=== PATIENT | female | born 1990 | race Caucasian/White ===

== ENCOUNTER 2017-07-03 19:00 | Emergency (ER) | payer OTHER ==
[~2017-07-03] VITALS: Ht 154.9 cm; Wt 70.3 kg
[2017-07-03 19:20] VITALS: BP 140/84
--- NOTE | 2017-07-03 19:20 | PHYS DOC ---
Adult General Chief Complaint Chief Complaint: ANKLE PROBLEM HPI HPI Patient is a 27 year old female presents to the emergency department with complaints of right foot pain for 2 weeks. Patient states 2 weeks ago she was moving some furniture when she misstepped and had a inversion with plantar flexion of the right foot. She's had discomfort since that time. She has been ambulatory for the past 2 weeks. She reports no swelling. She states now seeking further evaluation. Review of Systems Review of Systems Constitutional: Denies fever or chills [] Eyes: Denies change in visual acuity, redness, or eye pain [] HENT: Denies nasal congestion or sore throat [] Respiratory: Denies cough or shortness of breath [] Cardiovascular: No additional information not addressed in HPI [] GI: Denies abdominal pain, nausea, vomiting, bloody stools or diarrhea [] : Denies dysuria or hematuria [] Musculoskeletal: Right foot pain Integument: Denies rash or skin lesions [] Neurologic: Denies headache, focal weakness or sensory changes [] Endocrine: Denies polyuria or polydipsia [] Allergies Allergies Allergies Coded Allergies Type Severity Reaction Last Updated Verified No Known Drug Allergies 07/03/17 No Physical Exam Physical Exam Constitutional: Well developed, well nourished, no acute distress, non-toxic appearance. [] HENT: Normocephalic, atraumatic, bilateral external ears normal, oropharynx moist, no oral exudates, nose normal. [] Eyes: PERRLA, EOMI, conjunctiva normal, no discharge. [] Neck: Normal range of motion, no tenderness, supple, no stridor. [] Cardiovascular:Heart rate regular rhythm, no murmur [] Lungs & Thorax: Bilateral breath sounds clear to auscultation [] Abdomen: Bowel sounds normal, soft, no tenderness, no masses, no pulsatile masses. [] Skin: Warm, dry, no erythema, no rash. [] Back: No tenderness, no CVA tenderness. [] Extremities: Exam of the right lower extremity, right knee exam unremarkable, right ankle exam unremarkable. Right foot without swelling without ecchymosis. She's diffusely tender over the tarsal bones. Full range of motion all digits without difficulty. Neurovascular intact distally. Neurologic: Alert and oriented X 3, normal motor function, normal sensory function, no focal deficits noted. [] Psychologic: Affect normal, judgement normal, mood normal. [] EKG EKG [] Radiology/Procedures Radiology/Procedures Right foot x-ray no acute bony abnormalities[] Course & Med Decision Making Course & Med Decision Making Pertinent Labs and Imaging studies reviewed. (See chart for details) []Patient had the initial injury 2 weeks ago. She has been using a compression stocking and well fitted shoe to manage her symptoms. I've encouraged her to continue this process, ibuprofen [id number] as labeled and is indicated. follow up with primary Care provider in 3-5 days for further management. Dragon Disclaimer Dragon Disclaimer This electronic medical record was generated, in whole or in part, using a voice recognition dictation system. Departure Departure Impression: Primary Impression: Foot sprain Disposition: 01 HOME, SELF-CARE Condition: STABLE [facility] Patient Instructions: Foot Sprain Problem Qualifiers Primary Impression: Foot sprain Encounter type: initial encounter Laterality: right Qualified Codes: S93.601A - Unspecified sprain of right foot, initial encounter TENNILLE YANCEY APRN Jul 03, 2017 19:20
--- NOTE | 2017-07-04 10:49 | RAD ---
Right foot, 3 views, 07/03/2017: History: Foot pain. No acute fracture or dislocation is identified. There is mild subcutaneous edema. IMPRESSION: No acute bony abnormality is detected.
== END 2017-07-03 20:15 | disposition home or self-care (01) ==
LOC: ER 19:00
DX: S93.601A Unspecified sprain of right foot, initial encounter (principal); X58.XXXA Exposure to other specified factors, initial encounter; Y93.89 Activity, other specified; Y92.89 Other specified places as the place of occurrence of the external cause; Y99.8 Other external cause status
CPT/HCPCS: 73630; 99284

== ENCOUNTER → 2017-07-19 | Outpatient (CLI) | payer OTHER ==
[2017-07-03 19:20] VITALS: BP 140/84
--- NOTE | 2017-07-19 09:04 | RAD ---
INDICATION: Abdominal pain. COMPARISON: None. TECHNIQUE: Grayscale and color ultrasound images obtained through the abdomen. FINDINGS: Aorta/IVC: Poorly seen Pancreas: Visualized portions unremarkable. Liver: Mildly echogenic Gallbladder: No definite stones or wall thickening. Common Bile Duct: Not dilated. Right Kidney: No hydronephrosis. Left Kidney: No hydronephrosis. Spleen: Unremarkable. IMPRESSION: No bile duct dilation. Liver appears mildly echogenic. Nonspecific but can be seen with fatty infiltration.
== END | disposition home or self-care (01) ==
LOC: US 06:44
PROVIDERS: ATTEND Family Medicine
DX: R10.12 Left upper quadrant pain (principal); R11.0 Nausea
CPT/HCPCS: 76700

== ENCOUNTER → 2017-08-05 | Day surgery (SDC) | payer OTHER ==
[~2017-08-05] MED LIST: FAMO-63 PO; IV RINGERS,LACTATED 1000ML 1,000 ML IV SCH; LIDOCAINE 1% PF 2 ML VIAL. ID PRN; LIDOCAINE 2% PF Vial for OR 5 ML VIAL. ONE; MIDAZOLAM HCL/PF 2 MG/2 ML VIAL. IV PRN; PROPOFOL 40 ML IV ONE; SPIR100T2 PO; fentaNYL PF VIAL 100 MCG/2 ML VIAL IV PRN
[2017-08-05 13:05] LABS: NEG OBC UR NEG; POS OBC UR POS
[2017-08-05 14:28] VITALS: BP 107/72
== END | disposition home or self-care (01) ==
LOC: ENDOS 12:40
PROVIDERS: ATTEND Internal Medicine Gastroenterology
DX: K64.0 First degree hemorrhoids (principal); K31.89 Other diseases of stomach and duodenum; K21.9 Gastro-esophageal reflux disease without esophagitis; E11.9 Type 2 diabetes mellitus without complications; F41.9 Anxiety disorder, unspecified; F32.9 Major depressive disorder, single episode, unspecified; Z86.39 Personal history of other endocrine, nutritional and metabolic disease; Z98.890 Other specified postprocedural states
CPT/HCPCS: 43235; 45378; 81025; J2704; J2001

== ENCOUNTER 2017-08-26 12:16 | Day surgery (SDC) | payer OTHER ==
[~2017-08-26] VITALS: Ht 154.9 cm; Wt 77.1 kg
[~2017-08-26 12:16] MED LIST changes: +HYDROmorphone 2 MG/ML VIAL IV PRN; -LIDOCAINE 2% PF Vial for OR 5 ML VIAL. ONE; -MIDAZOLAM HCL/PF 2 MG/2 ML VIAL. IV PRN; +MORPHINE SULFATE 2 MG/ML DISP.SYRIN. IV PRN; +ONDANSETRON PF 4 MG/2 ML VIAL. IV PRN; +PROCHLORPERAZINE 10 MG/2 ML VIAL. IV PRN; -PROPOFOL 40 ML IV ONE
[2017-08-26] MEDS ORDERED: fentaNYL PF VIAL 100 MCG/2 ML VIAL ONE (12:45)
[2017-08-26] MEDS ORDERED: MIDAZOLAM HCL/PF 2 MG/2 ML VIAL. ONE (12:46)
[2017-08-26] MEDS ORDERED: DEXAMETHASONE SOD PHOS 20 MG/5 ML VIAL. ONE (12:46)
[2017-08-26] MEDS ORDERED: FAMOTIDINE 20 MG/2 ML VIAL ONE (12:46)
[2017-08-26] MEDS ORDERED: KETOROLAC 30 MG/ML INJ FOR OR. INJ ONE (12:46)
[2017-08-26] MEDS ORDERED: LIDOCAINE 2% PF Vial for OR 5 ML VIAL. ONE (12:46)
[2017-08-26] MEDS ORDERED: ROCURONIUM 50 MG/5 ML VIAL. ONE (12:46)
[2017-08-26] MEDS ORDERED: PROPOFOL 20 ML IV ONE (12:46)
[2017-08-26] MEDS ORDERED: ONDANSETRON PF 4 MG/2 ML VIAL. ONE (12:46)
[2017-08-26] MEDS ORDERED: DESFLURANE 31 TO 60 MINUTES IH ONE (12:46)
[2017-08-26] MEDS ORDERED: SEVOFLURANE 31 TO 60 MINUTES. IH ONE (12:53)
[2017-08-26] MEDS ORDERED: SURGICEL HEMOSTAT 4X8 EACH. ONE (13:31)
[2017-08-26 13:44] LABS: NEG OBC UR NEG; POS OBC UR POS
[2017-08-26] MEDS ORDERED: GLYCOPYRROLATE 1 MG/5 ML VIAL. ONE (14:09)
[2017-08-26] MEDS ORDERED: BUPIVAC MPF-EPI 0.5%-1:200000 10 ML VIAL. ONE (14:21)
[2017-08-26] MEDS ORDERED: ESMOLOL 100 MG/10 ML VIAL. IV ONE (14:27)
[2017-08-26] MEDS ORDERED: NEOSTIGMINE 10 MG/10 ML VIAL. ONE (14:44)
--- NOTE | 2017-08-26 14:56 | PDOC4 ---
Operative Note Operative Note Date: 08/26/2017 Preoperative diagnosis: Biliary dyskinesia Postoperative diagnosis: Same Procedure: Laparoscopic cholecystectomy Surgeon: Brian Specimen: Gallbladder Dictation: Patient is a 27-year-old female is had right upper quadrant abdominal pain postprandial nausea and a HIDA scan which showed ejection fraction of less than 30%. The procedure of lap scopic cholecystectomy was explained to the patient detail was benefits were also discussed including bleeding infection injury to intra-abdominal contents possibly necessitating further or open operations alternatives to this procedure were also discussed with the patient seemed understanding gave both verbal and written consent had procedure performed. Patient was taken to the operating room placed in supine position general anesthesia was initiated once patient was asleep and intubated her abdomen was prepped and draped in usual sterile fashion using ChloraPrep and area just below the umbilicus was injected with quarter percent Marcaine with epinephrine and an incision was made with a 11 blade scalpel varies needle was placed within the abdomen a pneumoperitoneum was achieved. At this point a 11 mm port was placed in a fibromata camera was placed within the abdomen which was inspected no other at maladies were noted. 5 OmegaPort was placed in the epigastrium under direct visualization a second 5 OmegaPort was placed in the right lateral abdomen as well as one in the right mid abdomen all under direct visualization. The dome of the gallbladder's grasped retracted cephalad the infundibulum of the gallbladder's grasped retracted laterally exposing the triangle adherent tissues of the triangle are taken down with blunt dissection. Cystic duct and cystic artery were visualizes both doubly clipped and transected the gallbladder was taken off the liver with hook left cautery placed in Endo Catch bag and removed from the umbilicus right upper quadrant was irrigated and suctioned dry hemostasis didn't be appropriate and the pneumoperitoneum was reduced all ports removed and the fascial defect of the umbilicus closed [id number] 0 Vicryl suture. All port sites were closed 4 septic Monocryl Mastisol Steri-Strips and Band-Aids were applied as dressings. Patient was waken expanded in the operating room taken recovery in stable condition all sponge instrument needle counts listed as correct estimated blood loss 10 mL. HUMA MEJIA MD Aug 26, 2017 14:56
--- NOTE | 2017-08-26 14:57 | DISCH ---
DISCHARGE INSTRUCTIONS Condition on Discharge Condition on Discharge: Stable Activity After Discharge Activity Instructions for Disc: Avoid exertion Other activity instructions: No lifting >20lbs for 2 weeks Diet after Discharge Diet after Discharge: Low Fat Wound Incision Care Other wound/incision instructi: may shower in 24 hours Contacting the after DC Call your doctor for: If your condition worsens Follow-Up Follow up with: Dr Mejia in 2 weeks HUMA MEJIA MD Aug 26, 2017 14:57
[2017-08-26] MEDS ORDERED: OXYC-323 PO (15:24)
[2017-08-26] MEDS ORDERED: oxyCODONE/APAP 5/325 1 TAB TABLET PO PRN ×2 (15:30)
[2017-08-26] MEDS: fentaNYL PF VIAL 100 MCG/2 ML VIAL IV PRN ×2 (15:33→15:40)
[2017-08-26] MEDS ORDERED: ALBUTEROL SULFATE 2.5 MG/3 ML NEBU. NEB PRN (15:45)
[2017-08-26 16:29] VITALS: BP 105/63
--- NOTE | 2017-08-27 20:12 | PATHOLOGY ---
PATHOLOGY REPORT * * * * * * * * FINAL DIAGNOSIS: Gallbladder, laparoscopic cholecystectomy: - Chronic cholecystitis. COMMENT: There are no calculi identified within the gallbladder lumen or specimen container. There is no evidence of malignancy. (JPM:pit; 08/27/2017) REPORT ELECTRONICALLY SIGNED BY: Zachery Cespedes M.D. DATE/TIME: 08/27/2017 14:41 * * * * * * * * GROSS PATHOLOGY: Received in formalin labeled "Jerilyn Monsivais, gallbladder," is a 4.6 x 2.3 x 0.7 cm, previously punctured gallbladder with light carr to bluish, slightly vascular serosal surfaces. Opening the gallbladder reveals dark carr, velvety mucosa and an average wall thickness of 0.2 cm. Calculi are not present and no masses are noted grossly. [employer] sections from the body and fundus are submitted along with the proximal margin in cassette A1. (TSD; 08/26/2017) INITIAL CPT CODE(S): A; 78472 Professional services performed by [facility] [place] [address] Technical services performed by [facility] at [address] [place] [address] [address] [address]. SPECIMEN(S) RECEIVED: A.Gallbladder CLINICAL HISTORY: Biliary dyskinesia PATIENT: JERILYN MONSIVAIS /AGE: 9 1990 (Age: 27) PATIENT #: [id number] ALT CASE #: SPECIMEN COLLECTION DATE: 08/26/2017 SPECIMEN RECEIVED DATE: 08/26/2017 [facility] - [address] [place] [address] - PHONE: [phone] * * * END OF REPORT * * *
== END 2017-08-26 16:46 | disposition home or self-care (01) ==
LOC: SURG 12:16
PROVIDERS: ATTEND Surgery
DX: K81.1 Chronic cholecystitis (principal); K82.8 Other specified diseases of gallbladder; J45.909 Unspecified asthma, uncomplicated; K21.9 Gastro-esophageal reflux disease without esophagitis; M19.90 Unspecified osteoarthritis, unspecified site; E11.9 Type 2 diabetes mellitus without complications; F41.9 Anxiety disorder, unspecified; F32.9 Major depressive disorder, single episode, unspecified; Z87.891 Personal history of nicotine dependence; Z90.710 Acquired absence of both cervix and uterus; Z86.69 Personal history of other diseases of the nervous system and sense organs
CPT/HCPCS: 47562; 81025; 88304; J0690; J0780; J1100; J1170; J1885; J2250; J2405; J2704; J2710; J3010; J3490; J7030; S0028; J2001

== ENCOUNTER → 2017-09-15 | Outpatient (CLI) | payer OTHER | END | disposition home or self-care (01) | LOC: SPEC 16:06 | DX: Z01.419 Encounter for gynecological examination (general) (routine) without abnormal findings (principal) | CPT/HCPCS: 88175 ==

== ENCOUNTER → 2017-10-01 | Outpatient (CLI) | payer OTHER | END | disposition home or self-care (01) | LOC: LAB 08:55 | DX: Z80.9 Family history of malignant neoplasm, unspecified (principal) | CPT/HCPCS: 36415 ==

== ENCOUNTER 2017-10-10 19:35 | Emergency (ER) | payer OTHER ==
[2017-10-10 20:41] LABS: URINE HCG POC HCG NEGATIVE (Negative)
[2017-10-10] MEDS: IV NORMAL SALINE 1000ML BAG 1,000 ML IV (21:02)
[2017-10-10] MEDS: DICYCLOMINE HCL 10 MG CAPSULE PO (21:06)
[2017-10-10] MEDS: ONDANSETRON PF 4 MG/2 ML VIAL. IV (21:07)
[2017-10-10 21:21] LABS: BILIRUBIN,URINE NEGATIVE (NEG); CLARITY,URINE CLEAR; COLOR,URINE YELLOW; GLUCOSE,URINE NEGATIVE (NEG); NITRITE,URINE NEGATIVE (NEG); PH,URINE 6.5; PROTEIN,URINE NEGATIVE (NEG-TRACE)
[2017-10-10 21:22] LABS: BACTERIA,URINE FEW /HPF (0-FEW); RBC,URINE OCC /HPF (0-2); SQUAMOUS EPITHELIAL CELL,UR MANY /LPF; WBC,URINE OCC /HPF (0-4)
[2017-10-10 21:30] LABS: ANION GAP 12 (6-14); BLOOD UREA NITROGEN 13 mg/dL (7-20); BUN/CREATININE RATIO 16 (6-20); CALCIUM 8.8 mg/dL (8.5-10.1); CARBON DIOXIDE 27 mmol/L (21-32); CHLORIDE 102 mmol/L (98-107); CREATININE 0.8 mg/dL (0.6-1.0); GFR 86.7; GLUCOSE 124 mg/dL (70-99); POTASSIUM 3.7 mmol/L (3.5-5.1); SODIUM 141 mmol/L (136-145)
[2017-10-10 21:34] LABS: INFLUENZA A PATIENT NEGATIVE (NEGATIVE); INFLUENZA B PATIENT NEGATIVE (NEGATIVE); OBC FLU VALID
[2017-10-10 21:36] LABS: ALBUMIN/GLOBULIN RATIO 1.1 (1.0-1.7); ALK PHOS 57 U/L (46-116); ALT (SGPT) 15 U/L (14-59); AST (SGOT) 12 U/L (15-37); C-REACTIVE PROTEIN 3.6 mg/L (0-3.3); LIPASE 116 U/L (73-393); TOTAL BILIRUBIN 0.4 mg/dL (0.2-1.0); TOTAL PROTEIN 7.7 g/dL (6.4-8.2)
[2017-10-10 21:43] LABS: ADD MAN DIFF? NO
[2017-10-10 21:44] LABS: BASO % 0 % (0-3); EOS # 0.1 x10^3/uL (0.0-0.7); EOS % 1 % (0-3); HEMATOCRIT 39.1 % (36.0-47.0); LYMPH # 3.7 x10^3/uL (1.0-4.8); LYMPH % 40 % (24-48); MEAN CORPUSCULAR HEMOGLOBIN 32 pg (25-35); MEAN CORPUSCULAR HGB CONC 33 g/dL (31-37); MEAN CORPUSCULAR VOLUME 96 fL (79-100); MONO # 0.7 x10^3/uL (0.0-1.1); MONO % 8 % (0-9); NEUT # 4.7 x10^3uL (1.8-7.7); NEUT % 51 % (31-73); PLATELET COUNT 276 x10^3/uL (140-400); RED CELL DISTRIBUTION WIDTH 13.6 % (11.5-14.5); WHITE BLOOD COUNT 9.3 x10^3/uL (4.0-11.0)
== END 2017-10-10 22:58 | disposition home or self-care (01) ==
LOC: ER 19:35
DX: R11.2 Nausea with vomiting, unspecified (principal); R19.7 Diarrhea, unspecified; R42 Dizziness and giddiness; Z90.49 Acquired absence of other specified parts of digestive tract
CPT/HCPCS: 36415; 80053; 81001; 81025; 83690; 85025; 86140; 87804; 87804-59; 96361; 96374; 99284-25; J2405; J7030

== ENCOUNTER 2018-01-22 16:40 | Emergency (ER) | payer OTHER ==
[2018-01-22] MEDS: ONDANSETRON PF 4 MG/2 ML VIAL. IV (17:22)
[2018-01-22] MEDS: IV NORMAL SALINE 1000ML BAG 1,000 ML IV ×2 (17:23→19:06)
[2018-01-22 17:34] LABS: ADD MAN DIFF? NO
[2018-01-22 17:38] LABS: BASO % 1 % (0-3); EOS # 0.1 x10^3/uL (0.0-0.7); EOS % 1 % (0-3); HEMATOCRIT 38.4 % (36.0-47.0); HEMOGLOBIN 13.5 g/dL (12.0-15.5); LYMPH # 3.2 x10^3/uL (1.0-4.8); LYMPH % 41 % (24-48); MEAN CORPUSCULAR HEMOGLOBIN 33 pg (25-35); MEAN CORPUSCULAR HGB CONC 35 g/dL (31-37); MEAN CORPUSCULAR VOLUME 94 fL (79-100); MONO # 0.5 x10^3/uL (0.0-1.1); MONO % 7 % (0-9); NEUT # 3.9 x10^3uL (1.8-7.7); NEUT % 50 % (31-73); PLATELET COUNT 273 x10^3/uL (140-400); RED CELL DISTRIBUTION WIDTH 13.5 % (11.5-14.5); WHITE BLOOD COUNT 7.7 x10^3/uL (4.0-11.0)
[2018-01-22 17:47] LABS: PARTIAL THROMBOPLASTIN TIME 28 SEC (24-38); PROTHROMBIN TIME PATIENT 12.9 SEC (11.7-14.0)
[2018-01-22 17:49] LABS: ANION GAP 10 (6-14); BLOOD UREA NITROGEN 8 mg/dL (7-20); CALCIUM 8.5 mg/dL (8.5-10.1); CARBON DIOXIDE 28 mmol/L (21-32); CHLORIDE 103 mmol/L (98-107); CREATININE 0.8 mg/dL (0.6-1.0); GFR 86.7; GLUCOSE 113 mg/dL (70-99); POTASSIUM 3.2 mmol/L (3.5-5.1); SODIUM 141 mmol/L (136-145)
[2018-01-22 17:54] LABS: ALBUMIN 3.7 g/dL (3.4-5.0); ALK PHOS 61 U/L (46-116); ALT (SGPT) 23 U/L (14-59); AST (SGOT) 15 U/L (15-37); DIRECT BILIRUBIN < 0.1 mg/dL (0.0-0.2); TOTAL BILIRUBIN 0.2 mg/dL (0.2-1.0); TOTAL PROTEIN 7.6 g/dL (6.4-8.2)
[2018-01-22 18:06] LABS: URINE HCG POC HCG NEGATIVE (Negative)
[2018-01-22 18:08] LABS: BILIRUBIN,URINE NEGATIVE (NEG); CLARITY,URINE CLEAR; COLOR,URINE YELLOW; GLUCOSE,URINE NEGATIVE (NEG); NITRITE,URINE NEGATIVE (NEG); PH,URINE 6.5; PROTEIN,URINE NEGATIVE (NEG-TRACE); UROBILINOGEN,URINE 0.2 mg/dL (0.2 mg/dL)
[2018-01-22] MEDS: IOHEXOL 300 MG/ML 100ML VIAL. IV (18:12)
[2018-01-22 18:15] LABS: BACTERIA,URINE 0 /HPF (0-FEW); RBC,URINE 0 /HPF (0-2); SQUAMOUS EPITHELIAL CELL,UR MOD /LPF
[2018-01-22] MEDS ORDERED: CONTRAST GIVEN MC (18:15)
[2018-01-22] MEDS: POTASSIUM CHLORIDE 20 MEQ TABLET.ER. PO (19:05)
[2018-01-22 19:08] LABS: LIPASE 119 U/L (73-393)
== END 2018-01-22 19:50 | disposition home or self-care (01) ==
LOC: ER 16:40
DX: R11.2 Nausea with vomiting, unspecified (principal); R19.7 Diarrhea, unspecified; Z90.49 Acquired absence of other specified parts of digestive tract; Z90.89 Acquired absence of other organs
CPT/HCPCS: 36415; 74177; 80048; 80076; 81001; 81025; 83690; 85025; 85610; 85730; 96361; 96374; 99285; J2405; J7030; Q9967

== ENCOUNTER → 2018-02-03 | Outpatient (CLI) | payer OTHER ==
[2018-02-03 16:55] LABS: ANION GAP 6 (6-14); BLOOD UREA NITROGEN 11 mg/dL (7-20); CALCIUM 9.9 mg/dL (8.5-10.1); CARBON DIOXIDE 30 mmol/L (21-32); CHLORIDE 103 mmol/L (98-107); CREATININE 0.9 mg/dL (0.6-1.0); GFR 75.7; GLUCOSE 90 mg/dL (70-99); POTASSIUM 4.3 mmol/L (3.5-5.1); SODIUM 139 mmol/L (136-145)
[2018-02-03 17:29] LABS: VITAMIN-B12 336 pg/mL (247-911)
== END | disposition home or self-care (01) ==
LOC: LAB 16:22
DX: E87.8 Other disorders of electrolyte and fluid balance, not elsewhere classified (principal); R11.2 Nausea with vomiting, unspecified; E11.9 Type 2 diabetes mellitus without complications; K21.9 Gastro-esophageal reflux disease without esophagitis; E55.9 Vitamin D deficiency, unspecified; Z90.49 Acquired absence of other specified parts of digestive tract
CPT/HCPCS: 36415; 80048; 82306; 82607; 84702

== ENCOUNTER → 2018-04-15 | Outpatient (CLI) | payer OTHER | END | disposition home or self-care (01) | LOC: US 15:41 | DX: R10.2 Pelvic and perineal pain (principal); E55.9 Vitamin D deficiency, unspecified; E11.9 Type 2 diabetes mellitus without complications; K21.9 Gastro-esophageal reflux disease without esophagitis; F32.9 Major depressive disorder, single episode, unspecified; J45.909 Unspecified asthma, uncomplicated; Z90.49 Acquired absence of other specified parts of digestive tract; Z87.42 Personal history of other diseases of the female genital tract; Z87.891 Personal history of nicotine dependence | CPT/HCPCS: 76830; 76856 ==

== ENCOUNTER 2018-05-03 09:44 | Emergency (ER) | payer OTHER | END 2018-05-03 10:55 | disposition home or self-care (01) | LOC: ER 09:44 | DX: F41.9 Anxiety disorder, unspecified (principal); J02.9 Acute pharyngitis, unspecified; F32.9 Major depressive disorder, single episode, unspecified | CPT/HCPCS: 93005; 99283-25; 99284-25 ==

== ENCOUNTER 2018-06-14 19:43 | Emergency (ER) | payer OTHER ==
[~2018-06-14] VITALS: Ht 154.9 cm; Wt 70.8 kg
[~2018-06-14 19:43] MED LIST changes: +AMOX1TAB61 PO; +DICY20TA3 PO; -HYDROmorphone 2 MG/ML VIAL IV PRN; -IV RINGERS,LACTATED 1000ML 1,000 ML IV SCH; -LIDOCAINE 1% PF 2 ML VIAL. ID PRN; -MORPHINE SULFATE 2 MG/ML DISP.SYRIN. IV PRN; +ONDA4TAB10 SL; -ONDANSETRON PF 4 MG/2 ML VIAL. IV PRN; +OXYC-323 PO; -PROCHLORPERAZINE 10 MG/2 ML VIAL. IV PRN; -SPIR100T2 PO; +SPIR100T4 PO; -fentaNYL PF VIAL 100 MCG/2 ML VIAL IV PRN
[2018-06-14 21:15] VITALS: BP 135/71
[2018-06-14 21:40] LABS: BILIRUBIN,URINE NEGATIVE (NEG); CLARITY,URINE CLEAR; COLOR,URINE YELLOW; NITRITE,URINE NEGATIVE (NEG); PH,URINE 6.5; PROTEIN,URINE NEGATIVE (NEG-TRACE)
[2018-06-14 21:46] LABS: BACTERIA,URINE FEW /HPF (0-FEW); RBC,URINE 0 /HPF (0-2); SQUAMOUS EPITHELIAL CELL,UR FEW /LPF
--- NOTE | 2018-06-14 22:25 | PHYS DOC ---
Past Medical History Past Medical History: Anxiety, Depression, Other Additional Past Medical Histor: PCOS, sleep Past Surgical History: Cholecystectomy, Tonsillectomy, Other Additional Past Surgical Histo: Sinus Alcohol Use: None Drug Use: None Adult General Chief Complaint Chief Complaint: PAIN ON URINATION [facility] HPI Patient is a 27 year old female who presents with pain on urination. She states that she thought that she had a yeast infection and was using Monistat. She now has significant swelling to her labia which is now dry and tender. She was having some white discharge. She does not think that she has an STD but cannot rule that out. She denies pelvic pain, abdominal pain, nausea or vomiting or fever. Review of Systems Review of Systems Constitutional: Denies fever or chills [] Eyes: Denies change in visual acuity, redness, or eye pain [] HENT: Denies nasal congestion or sore throat [] Respiratory: Denies cough or shortness of breath [] Cardiovascular: No additional information not addressed in HPI [] GI: Denies abdominal pain, nausea, vomiting, bloody stools or diarrhea [] : See history of present illness Musculoskeletal: Denies back pain or joint pain [] Integument: Denies rash or skin lesions [] Neurologic: Denies headache, focal weakness or sensory changes [] Endocrine: Denies polyuria or polydipsia [] All other systems were reviewed and found to be within normal limits, except as documented in this note. Current Medications Current Medications Current Medications Medications (Trade) Dose Ordered Sig/Ron Start Time Stop Time Status Last Admin Dose Admin Azithromycin (Zithromax) 1,000 mg 1X ONCE 06/14/18 22:30 06/14/18 22:31 DC 06/14/18 23:09 1,000 MG Ceftriaxone Sodium (Rocephin Im) 250 mg 1X ONCE 06/14/18 22:30 06/14/18 22:31 DC 06/14/18 23:10 250 MG Allergies Allergies Allergies Coded Allergies Type Severity Reaction Last Updated Verified No Known Drug Allergies 08/26/17 No Physical Exam Physical Exam Constitutional: Well developed, well nourished, no acute distress, non-toxic appearance. [] HENT: Normocephalic, atraumatic, bilateral external ears normal, oropharynx moist, no oral exudates, nose normal. [] Eyes: PERRLA, EOMI, conjunctiva normal, no discharge. [] Neck: Normal range of motion, no tenderness, supple, no stridor. [] Cardiovascular:Heart rate regular rhythm, no murmur [] Lungs & Thorax: Bilateral breath sounds clear to auscultation [] Abdomen: Bowel sounds normal, soft, no tenderness, no masses, no pulsatile masses. [] Skin: Warm, dry, no erythema, no rash. [] Back: No tenderness, no CVA tenderness. [] Extremities: No tenderness, no cyanosis, no clubbing, ROM intact, no edema. [] Neurologic: Alert and oriented X 3, normal motor function, normal sensory function, no focal deficits noted. [] Psychologic: Affect normal, judgement normal, mood normal. Pelvic Exam: Care Advocate present Abdomen: Nontender External Genitalia: Edematous Skin Speculum: Normal vaginal mucosa, white cervical discharge Bimanual: No adnexal masses or tenderness, No CMT [] Current Patient Data Vital Signs Vital Signs Date Time Temp Pulse Resp B/P (MAP) Pulse Ox O2 Delivery O2 Flow Rate FiO2 06/14/18 21:15 98.2 97 18 135/71 (92) 98 Room Air 98.2 Lab Values Laboratory Tests Test 06/14/18 20:42 06/14/18 21:25 Urine Collection Type Unknown Urine Color Yellow Urine Clarity Clear Urine pH 6.5 Urine Specific [place] 1.010 Urine Protein Negative mg/dL (NEG-TRACE) Urine Glucose (UA) Negative mg/dL (NEG) Urine Ketones (Stick) Negative mg/dL (NEG) Urine Blood Negative (NEG) Urine Nitrite Negative (NEG) Urine Bilirubin Negative (NEG) Urine Urobilinogen Dipstick 1.0 mg/dL (0.2 mg/dL) Urine Leukocyte Esterase Trace (NEG) Urine RBC 0 /HPF (0-2) Urine WBC 1-4 /HPF (0-4) Urine Squamous Epithelial Cells Few /LPF Urine Bacteria Few /HPF (0-FEW) Urine Mucus Slight /LPF POC Urine HCG, Qualitative Hcg negative (Negative) Microbiology 06/14/18 Wet Prep - Final, Complete EKG EKG [] Radiology/Procedures Radiology/Procedures [] Course & Med Decision Making Course & Med Decision Making Pertinent Labs and Imaging studies reviewed. (See chart for details) []Patient did receive Rocephin and Zithromax for presumptive treatment of an STD. She understands that we will only call positive cultures to her. She is in agreement with this plan. Dragon Disclaimer Dragon Disclaimer This electronic medical record was generated, in whole or in part, using a voice recognition dictation system. Departure Departure Impression: Primary Impression: Possible exposure to STD Disposition: HOME, SELF-CARE Condition: STABLE Referrals: FELIX LOMAX APRN (PCP) Patient Instructions: Sexually Transmitted Disease, [id number] Additional Instructions: You were treated in the emergency department. Abstain from sexual activity for 2 weeks to allow time for the antibiotics work. Do not use the Monistat cream as it may be causing an allergic reaction. 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 TAY FALLON APRN Jun 14, 2018 22:25
[2018-06-14] MEDS ORDERED: AZITHROMYCIN 250 MG TABLET. PO ONE (22:30)
[2018-06-14] MEDS ORDERED: cefTRIAXone IM 250 MG VIAL IM ONE (22:30)
[2018-06-16 14:44] LABS: GC PROBE Negative (Negative)
== END 2018-06-14 23:20 | disposition home or self-care (01) ==
LOC: ER 19:43
DX: R30.0 Dysuria (principal); E28.2 Polycystic ovarian syndrome; Z90.49 Acquired absence of other specified parts of digestive tract
CPT/HCPCS: 81001; 81025; 87086; 87491; 87591; 96372; 99284; J0696; Q0111; Q0144

== ENCOUNTER 2018-07-24 14:32 | Emergency (ER) | payer OTHER ==
[~2018-07-24] VITALS: Ht 154.9 cm; Wt 69.5 kg
[2018-07-24 14:40] VITALS: BP 126/76
[2018-07-24 15:10] LABS: BILIRUBIN,URINE NEGATIVE (NEG); CLARITY,URINE CLEAR; COLOR,URINE YELLOW; NITRITE,URINE NEGATIVE (NEG); PROTEIN,URINE NEGATIVE (NEG-TRACE); UROBILINOGEN,URINE 0.2 mg/dL (0.2 mg/dL)
[2018-07-24] MEDS ORDERED: HYDR-971 PO (15:24)
[2018-07-24] MEDS ORDERED: DIAZ5TAB PO (15:24)
[2018-07-24] MEDS ORDERED: IBUP-1060 PO (15:24)
[2018-07-24 15:37] LABS: BACTERIA,URINE 0 /HPF (0-FEW); SQUAMOUS EPITHELIAL CELL,UR MANY /LPF
== END 2018-07-24 15:29 | disposition home or self-care (01) ==
LOC: ER 14:32
DX: S29.9XXA Unspecified injury of thorax, initial encounter (principal); X50.0XXA Overexertion from strenuous movement or load, initial encounter; Y93.F2 Activity, caregiving, lifting; Y92.89 Other specified places as the place of occurrence of the external cause; Y99.8 Other external cause status
CPT/HCPCS: 81001; 81025; 99283

== ENCOUNTER → 2018-07-29 | Outpatient (CLI) | payer OTHER ==
[2018-07-24 14:40] VITALS: BP 126/76
[~2018-07-29] MED LIST changes: +DIAZ5TAB PO; +HYDR-971 PO; +IBUP-1060 PO
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
== END | disposition home or self-care (01) ==
LOC: MRI 15:50
PROVIDERS: ATTEND Physical Medicine & Rehabilitation
DX: M50.322 Other cervical disc degeneration at C5-C6 level (principal); M48.02 Spinal stenosis, cervical region; M54.5 Low back pain; G89.29 Other chronic pain
CPT/HCPCS: 72141; 72148

== ENCOUNTER 2018-08-31 18:50 | Emergency (ER) | payer OTHER ==
[~2018-08-31] VITALS: Ht 160 cm; Wt 71.8 kg
[~2018-08-31 18:50] MED LIST changes: +HYDR-3164 PO; -HYDR-971 PO; -OXYC-323 PO; +OXYC1TAB15 PO
[2018-08-31 19:10] VITALS: BP 112/70
[2018-08-31] MEDS: IV NORMAL SALINE 1000ML BAG 1,000 ML IV SCH (19:50)
[2018-08-31 19:56] LABS: BASO # 0.1 x10^3/uL (0.0-0.2); BASO % 0 % (0-3); EOS # 0.1 x10^3/uL (0.0-0.7); EOS % 0 % (0-3); HEMATOCRIT 40.9 % (36.0-47.0); LYMPH # 3.2 x10^3/uL (1.0-4.8); LYMPH % 24 % (24-48); MEAN CORPUSCULAR HEMOGLOBIN 33 pg (25-35); MEAN CORPUSCULAR HGB CONC 34 g/dL (31-37); MEAN CORPUSCULAR VOLUME 96 fL (79-100); MONO # 1.3 x10^3/uL (0.0-1.1); MONO % 10 % (0-9); NEUT # 8.8 x10^3uL (1.8-7.7); NEUT % 65 % (31-73); PLATELET COUNT 293 x10^3/uL (140-400); RED BLOOD COUNT 4.24 x10^6/uL (3.50-5.40); RED CELL DISTRIBUTION WIDTH 14.5 % (11.5-14.5); WHITE BLOOD COUNT 13.5 x10^3/uL (4.0-11.0)
[2018-08-31] MEDS: ONDANSETRON PF 4 MG/2 ML VIAL. IV ONE (19:58)
[2018-08-31 19:59] LABS: BILIRUBIN,URINE NEGATIVE (NEG); CLARITY,URINE CLEAR; COLOR,URINE YELLOW; NITRITE,URINE NEGATIVE (NEG); PROTEIN,URINE NEGATIVE (NEG-TRACE); UROBILINOGEN,URINE 0.2 mg/dL (0.2 mg/dL)
[2018-08-31] MEDS: MORPHINE SULFATE 4 MG/ML VIAL. IV ONE (19:59)
[2018-08-31] MEDS: KETOROLAC 30 MG/ML VIAL. IV ONE (20:00)
[2018-08-31 20:04] LABS: CALCIUM 9.3 mg/dL (8.5-10.1); CREATININE 1.2 mg/dL (0.6-1.0); GFR 53.9; POTASSIUM 3.7 mmol/L (3.5-5.1)
[2018-08-31 20:10] LABS: BACTERIA,URINE FEW /HPF (0-FEW); RBC,URINE >40 /HPF (0-2); SQUAMOUS EPITHELIAL CELL,UR MOD /LPF; WBC,URINE OCC /HPF (0-4)
[2018-08-31 20:11] LABS: ALBUMIN 4.2 g/dL (3.4-5.0); ALBUMIN/GLOBULIN RATIO 1.1 (1.0-1.7); TOTAL BILIRUBIN 0.8 mg/dL (0.2-1.0); TOTAL PROTEIN 7.9 g/dL (6.4-8.2)
--- NOTE | 2018-08-31 21:26 | RAD ---
PQRS Compliance statement: One or more of the following individualized dose reduction techniques were utilized for this examination: 1. Automated exposure control. 2. Adjustment of the mA and/or kV according to patient size. 3. Use of iterative reconstruction technique. Indication:severe Left flank pain, hx kidney stones, PCOS, prior sent TECHNIQUE: CT abdomen and pelvis without IV contrast with multiplanar reformats. COMPARISON: 01/22/2018 FINDINGS: Limited evaluation of solid abdominal and pelvic organs due to lack of IV contrast. Heart is normal in size. No pericardial or pleural effusion. Clear lung bases. Noncontrast appearance of the liver, spleen, pancreas, adrenals within normal limits. Status post cholecystectomy. Focal fat infiltration is seen along the ligamentum falciform recess in segment 4A of the liver. Obstructing 3 mm stone is seen in the proximal left ureter causing mild hydronephrosis. Couple of too-3 mm nonobstructing stones are seen in the left kidney. There is mild left perinephric inflammatory changes. No right-sided nephrolithiasis. No free pelvic fluid or ascites. No bowel obstruction. Normal appendix. No enlarged retroperitoneal or pelvic adenopathy. Uterus is present. Urinary bladder demonstrates no radiopaque stones. No pneumoperitoneum. No suspicious bony lesion. IMPRESSION: Limited evaluation of solid abdominal and pelvic organs due to lack of IV contrast. 1. Obstructing 3 mm stone in the proximal left ureter. Couple of nonobstructing left renal stones. Electronically signed by: Wale Kent DO (08/31/2018 9:23 PM) [facility]
[2018-08-31] MEDS ORDERED: KETO10TA PO (22:33)
[2018-08-31] MEDS ORDERED: OXYC1TAB19 PO (22:33)
[2018-08-31] MEDS ORDERED: ONDA4TAB7 PO (22:33)
--- NOTE | 2018-08-31 22:33 | PHYS DOC ---
Past Medical History Past Medical History: Anxiety, Depression, Other Additional Past Medical Histor: PCOS, sleep Past Surgical History: Cholecystectomy, Tonsillectomy, Other Additional Past Surgical Histo: Sinus Alcohol Use: Occasionally Drug Use: None Adult General Chief Complaint Chief Complaint: ABDOMINAL PAIN [facility] HPI Patient is a 28-year-old female who presents with complaint of acute onset of left lower abdominal pain that started about 4 hours ago. She describes pain as being sharp in nature. She rates pain at an 8-9 out of 10. She indicates that she has had some nausea but no vomiting. Patient states that she thinks that it may just be one of her ovarian cysts that have ruptured. She does admit to a history of PCOS. She denies any back pain or fever. She also denies any urinary discomfort. Patient states that nothing seems to worsen or improve the pain. Review of Systems Review of Systems Constitutional: Denies fever or chills [] Respiratory: Denies cough or shortness of breath [] Cardiovascular: No additional information not addressed in HPI [] GI: Complains of left lower abdominal pain with nausea. No vomiting or diarrhea. [] : Denies dysuria or hematuria [] Musculoskeletal: Denies back pain or joint pain [] All other systems were reviewed and found to be within normal limits, except as documented in this note. Current Medications Current Medications Current Medications Medications (Trade) Dose Ordered Sig/Ron Start Time Stop Time Status Last Admin Dose Admin Hydromorphone HCl (Dilaudid) 0.5 mg 1X ONCE 08/31/18 22:30 08/31/18 22:31 Ketorolac Tromethamine (Toradol 30mg Vial) 30 mg 1X ONCE 08/31/18 19:30 08/31/18 19:31 DC 08/31/18 20:00 30 MG Morphine Sulfate (Morphine Sulfate) 4 mg 1X ONCE 08/31/18 19:30 08/31/18 19:31 DC 08/31/18 19:59 4 MG Ondansetron HCl (Zofran) 4 mg 1X ONCE 08/31/18 19:30 08/31/18 19:31 DC 08/31/18 19:58 4 MG Sodium Chloride 1,000 ml @ 1,000 mls/hr Q1H 08/31/18 19:26 08/31/18 20:25 DC 08/31/18 19:50 1,000 MLS/HR Allergies Allergies Allergies Coded Allergies Type Severity Reaction Last Updated Verified No Known Drug Allergies 08/26/17 No Physical Exam Physical Exam Constitutional: Well developed, well nourished, no acute distress, non-toxic appearance. [] HENT: Normocephalic, atraumatic, bilateral external ears normal, oropharynx moist, no oral exudates, nose normal. [] Eyes: PERRLA, EOMI, conjunctiva normal, no discharge. [] Neck: Normal range of motion, no tenderness, supple, no stridor. [] Cardiovascular: Regular rate and rhythm, no murmur [] Lungs & Thorax: Bilateral breath sounds clear to auscultation [] Abdomen: Bowel sounds normal, soft, with mild left lower abdominal tenderness. [ ] Skin: Warm, dry, no erythema, no rash. [] Extremities: No tenderness, no cyanosis, no clubbing, ROM intact, no edema. [] Neurologic: Alert and oriented X 3, normal motor function, normal sensory function, no focal deficits noted. [] Current Patient Data Vital Signs Vital Signs Date Time Temp Pulse Resp B/P (MAP) Pulse Ox O2 Delivery O2 Flow Rate FiO2 08/31/18 19:59 16 98 08/31/18 19:10 98.2 72 112/70 (84) Room Air 98.2 Lab Values Laboratory Tests Test 08/31/18 19:40 08/31/18 19:43 08/31/18 19:52 White Blood Count 13.5 x10^3/uL (4.0-11.0) H Red Blood Count 4.24 x10^6/uL (3.50-5.40) Hemoglobin 14.0 g/dL (12.0-15.5) Hematocrit 40.9 % (36.0-47.0) Mean Corpuscular Volume 96 fL (79-100) Mean Corpuscular Hemoglobin 33 pg (25-35) Mean Corpuscular Hemoglobin Concent 34 g/dL (31-37) Red Cell Distribution Width 14.5 % (11.5-14.5) Platelet Count 293 x10^3/uL (140-400) Neutrophils (%) (Auto) 65 % (31-73) Lymphocytes (%) (Auto) 24 % (24-48) Monocytes (%) (Auto) 10 % (0-9) H Eosinophils (%) (Auto) 0 % (0-3) Basophils (%) (Auto) 0 % (0-3) Neutrophils # (Auto) 8.8 x10^3uL (1.8-7.7) H Lymphocytes # (Auto) 3.2 x10^3/uL (1.0-4.8) Monocytes # (Auto) 1.3 x10^3/uL (0.0-1.1) H Eosinophils # (Auto) 0.1 x10^3/uL (0.0-0.7) Basophils # (Auto) 0.1 x10^3/uL (0.0-0.2) Sodium Level 140 mmol/L (136-145) Potassium Level 3.7 mmol/L (3.5-5.1) Chloride Level 101 mmol/L (98-107) Carbon Dioxide Level 29 mmol/L (21-32) Anion Gap 10 (6-14) Blood Urea Nitrogen 14 mg/dL (7-20) Creatinine 1.2 mg/dL (0.6-1.0) H Estimated GFR (Cockcroft-Gault) 53.9 BUN/Creatinine Ratio 12 (6-20) Glucose Level 97 mg/dL (70-99) Calcium Level 9.3 mg/dL (8.5-10.1) Total Bilirubin 0.8 mg/dL (0.2-1.0) Aspartate Amino Transferase (AST) 12 U/L (15-37) L Alanine Aminotransferase (ALT) 21 U/L (14-59) Alkaline Phosphatase 76 U/L (46-116) Total Protein 7.9 g/dL (6.4-8.2) Albumin 4.2 g/dL (3.4-5.0) Albumin/Globulin Ratio 1.1 (1.0-1.7) Urine Collection Type Unknown Urine Color Yellow Urine Clarity Clear Urine pH 6.0 Urine Specific [place] 1.025 Urine Protein Negative mg/dL (NEG-TRACE) Urine Glucose (UA) Negative mg/dL (NEG) Urine Ketones (Stick) Trace mg/dL (NEG) Urine Blood Large (NEG) Urine Nitrite Negative (NEG) Urine Bilirubin Negative (NEG) Urine Urobilinogen Dipstick 0.2 mg/dL (0.2 mg/dL) Urine Leukocyte Esterase Negative (NEG) Urine RBC >40 /HPF (0-2) Urine WBC Occ /HPF (0-4) Urine Squamous Epithelial Cells Mod /LPF Urine Bacteria Few /HPF (0-FEW) Urine Mucus Marked /LPF POC Urine HCG, Qualitative Hcg negative (Negative) Laboratory Tests 08/31/18 19:40 Laboratory Tests 08/31/18 19:40 EKG EKG [] Radiology/Procedures Radiology/Procedures PROCEDURE: CT ABDOMEN PELVIS WO CONTRAST PQRS Compliance statement: One or more of the following individualized dose reduction techniques were utilized for this examination: 1. Automated exposure control. 2. Adjustment of the mA and/or kV according to patient size. 3. Use of iterative reconstruction technique. Indication:severe Left flank pain, hx kidney stones, PCOS, prior sent TECHNIQUE: CT abdomen and pelvis without IV contrast with multiplanar reformats. COMPARISON: 01/22/2018 FINDINGS: Limited evaluation of solid abdominal and pelvic organs due to lack of IV contrast. Heart is normal in size. No pericardial or pleural effusion. Clear lung bases. Noncontrast appearance of the liver, spleen, pancreas, adrenals within normal limits. Status post cholecystectomy. Focal fat infiltration is seen along the ligamentum falciform recess in segment 4A of the liver. Obstructing 3 mm stone is seen in the proximal left ureter causing mild hydronephrosis. Couple of too-3 mm nonobstructing stones are seen in the left kidney. There is mild left perinephric inflammatory changes. No right-sided nephrolithiasis. No free pelvic fluid or ascites. No bowel obstruction. Normal appendix. No enlarged retroperitoneal or pelvic adenopathy. Uterus is present. Urinary bladder demonstrates no radiopaque stones. No pneumoperitoneum. No suspicious bony lesion. IMPRESSION: Limited evaluation of solid abdominal and pelvic organs due to lack of IV contrast. 1. Obstructing 3 mm stone in the proximal left ureter. Couple of nonobstructing left renal stones. Electronically signed by: Wale Kent DO (08/31/2018 9:23 PM) [facility] Course & Med Decision Making Course & Med Decision Making Pertinent Labs and Imaging studies reviewed. (See chart for details) [] Dragon Disclaimer Dragon Disclaimer This electronic medical record was generated, in whole or in part, using a voice recognition dictation system. Departure Departure Impression: Primary Impression: Ureterolithiasis Disposition: 01 HOME, SELF-CARE Condition: STABLE Referrals: FELIX LOMAX APRN (PCP) GERALD DOE MD Patient Instructions: Kidney Stones Scripts Ketorolac Tromethamine (KETOROLAC TROMETHAMINE) 10 Mg Tablet 1 TAB PO PRN Q6HRS PRN for PAIN, #20 TAB Prov: STEPHANI MENA Jr. DO 08/31/18 Ondansetron Hcl (ZOFRAN) 4 Mg Tablet 4 MG PO PRN TID PRN for NAUSEA, #15 nausea/vomiting Prov: STEPHANI MENA Jr. DO 08/31/18 Oxycodone/Apap 7.5-325 (PERCOCET 7.5-325 MG TABLET ) 1 Each Tablet 1 TAB PO PRN Q6HRS PRN for PAIN, #12 TAB 0 Refills Prov: STEPHANI MENA Jr. DO 08/31/18 STEPHANI MENA Jr. DO Aug 31, 2018 22:33
[2018-08-31] MEDS: HYDROmorphone 2 MG/ML VIAL IV ONE (22:35)
== END 2018-08-31 23:45 | disposition home or self-care (01) ==
LOC: ER 18:50
DX: N20.2 Calculus of kidney with calculus of ureter (principal)
CPT/HCPCS: 36415; 74176; 80053; 81001; 81025; 85025; 96374; 96375; 99284; J1170; J1885; J2270; J2405; J7030

== ENCOUNTER 2018-09-06 12:08 | Emergency (ER) | payer OTHER ==
[~2018-09-06] VITALS: Ht 152.4 cm; Wt 68.0 kg
[~2018-09-06 12:08] MED LIST changes: +KETO10TA PO; +ONDA4TAB7 PO; +OXYC1TAB19 PO
[2018-09-06 12:23] VITALS: BP 122/79
[2018-09-06 13:02] LABS: BILIRUBIN,URINE NEGATIVE (NEG); CLARITY,URINE CLOUDY; COLOR,URINE RED; NITRITE,URINE NEGATIVE (NEG); PROTEIN,URINE 30 mg/dL (NEG-TRACE); UROBILINOGEN,URINE 0.2 mg/dL (0.2 mg/dL)
[2018-09-06 13:03] LABS: BASO # 0.1 x10^3/uL (0.0-0.2); BASO % 1 % (0-3); EOS # 0.1 x10^3/uL (0.0-0.7); EOS % 1 % (0-3); HEMATOCRIT 41.1 % (36.0-47.0); HEMOGLOBIN 14.3 g/dL (12.0-15.5); LYMPH # 2.5 x10^3/uL (1.0-4.8); LYMPH % 35 % (24-48); MEAN CORPUSCULAR HEMOGLOBIN 34 pg (25-35); MEAN CORPUSCULAR HGB CONC 35 g/dL (31-37); MEAN CORPUSCULAR VOLUME 97 fL (79-100); MONO # 0.5 x10^3/uL (0.0-1.1); MONO % 7 % (0-9); NEUT % 56 % (31-73); PLATELET COUNT 275 x10^3/uL (140-400); RED BLOOD COUNT 4.26 x10^6/uL (3.50-5.40); RED CELL DISTRIBUTION WIDTH 13.8 % (11.5-14.5); WHITE BLOOD COUNT 7.3 x10^3/uL (4.0-11.0)
[2018-09-06 13:12] LABS: CALCIUM 9.8 mg/dL (8.5-10.1); CREATININE 0.9 mg/dL (0.6-1.0); GFR 75.1; POTASSIUM 4.1 mmol/L (3.5-5.1)
[2018-09-06 13:14] LABS: RBC,URINE TNTC /HPF (0-2); SQUAMOUS EPITHELIAL CELL,UR FEW /LPF
[2018-09-06 13:15] LABS: BACTERIA,URINE FEW /HPF (0-FEW)
[2018-09-06 13:18] LABS: ALBUMIN 3.9 g/dL (3.4-5.0); TOTAL BILIRUBIN 0.7 mg/dL (0.2-1.0); TOTAL PROTEIN 7.7 g/dL (6.4-8.2)
--- NOTE | 2018-09-06 13:21 | RAD ---
Examination: CT of the abdomen pelvis without contrast HISTORY: History of worsening left flank pain, hematuria COMPARISON: 08/31/2018 TECHNIQUE: Axial CT images of the abdomen pelvis were performed without contrast. Coronal and sagittal reformats are performed Exposure: One or more of the following individualized dose reduction techniques were utilized for this examination: 1. Automated exposure control 2. Adjustment of the mA and/or kV according to patient size 3. Use of iterative reconstruction technique FINDINGS: The bibasilar lungs are clear. No evidence of free air identified in the abdomen. The evaluation of the solid organs is limited due to lack of IV contrast. The evaluation of bowel is limited due to lack of oral contrast. The visualized noncontrasted liver, spleen, adrenals grossly appears unremarkable. Cystic thymic clips identified. The stomach is mildly distended. The visualized pancreas grossly appears unremarkable. The small bowel is nondilated. The appendix is normal. Feces and gas noted in the colon. There is a 3 mm calculus identified in the left kidney. Mild left-sided hydronephrosis and hydroureter. There are 2 small 3 mm calculi identified in the distal left ureter at the ureterovesical junction best visualized on series 2 image 179. There is an additional small 2 mm calculus identified in the distal left ureter, best visualized on series 2 image 162. Urinary bladder is mildly distended. No evidence of lytic bony destructive lesion. IMPRESSION: 1. Mild left-sided hydronephrosis and hydroureter identified with two small 3 mm calculi identified in the distal left ureter at the ureterovesical junction best visualized on series 2 image 179. There is an additional small 2 mm calculus identified in the distal left ureter, best visualized on series 2 image 162. 2. Left intrarenal collecting system calculus measuring 3 mm Electronically signed by: Brian Soto MD (09/06/2018 1:17 PM) [place] [id number]
[2018-09-06] MEDS: METOCLOPRAMIDE HCL 10 MG/2 ML VIAL. IV ONE (13:33)
[2018-09-06] MEDS: IV NORMAL SALINE 1000ML BAG 1,000 ML IV ONE (13:34)
[2018-09-06] MEDS: KETOROLAC 30 MG/ML VIAL. IV ONE (13:34)
--- NOTE | 2018-09-06 13:56 | PHYS DOC ---
Past Medical History Past Medical History: Anxiety, Depression, Kidney Stone, Other Additional Past Medical Histor: PCOS, sleep Past Surgical History: Cholecystectomy, Tonsillectomy, Other Additional Past Surgical Histo: Sinus Alcohol Use: Occasionally Drug Use: None Adult General Chief Complaint Chief Complaint: FLANK PAIN HPI HPI Patient is a 28 year old [f__sex] who presents with [] Review of Systems Review of Systems Constitutional: Denies fever or chills [] Eyes: Denies change in visual acuity, redness, or eye pain [] HENT: Denies nasal congestion or sore throat [] Respiratory: Denies cough or shortness of breath [] Cardiovascular: No additional information not addressed in HPI [] GI: Denies abdominal pain, nausea, vomiting, bloody stools or diarrhea [] : Denies dysuria or hematuria [] Musculoskeletal: Denies back pain or joint pain [] Integument: Denies rash or skin lesions [] Neurologic: Denies headache, focal weakness or sensory changes [] Endocrine: Denies polyuria or polydipsia [] All other systems were reviewed and found to be within normal limits, except as documented in this note. Current Medications Current Medications Current Medications Medications (Trade) Dose Ordered Sig/Ron Start Time Stop Time Status Last Admin Dose Admin Ketorolac Tromethamine (Toradol 30mg Vial) 15 mg 1X ONCE 09/06/18 13:00 09/06/18 13:01 DC 09/06/18 13:34 15 MG Metoclopramide HCl (Reglan Vial) 10 mg 1X ONCE 09/06/18 13:00 09/06/18 13:01 DC 09/06/18 13:33 10 MG Sodium Chloride 1,000 ml @ 1,000 mls/hr 1X ONCE 09/06/18 13:00 09/06/18 13:59 DC 09/06/18 13:34 1,000 MLS/HR Tamsulosin HCl (Flomax) 0.4 mg 1X ONCE 09/06/18 14:30 09/06/18 14:31 DC 09/06/18 14:30 0.4 MG Allergies Allergies Allergies Coded Allergies Type Severity Reaction Last Updated Verified No Known Drug Allergies 08/26/17 No Physical Exam Physical Exam Constitutional: Well developed, well nourished, no acute distress, non-toxic appearance. [] HENT: Normocephalic, atraumatic, bilateral external ears normal, oropharynx moist, no oral exudates, nose normal. [] Eyes: PERRLA, EOMI, conjunctiva normal, no discharge. [] Neck: Normal range of motion, no tenderness, supple, no stridor. [] Cardiovascular:Heart rate regular rhythm, no murmur [] Lungs & Thorax: Bilateral breath sounds clear to auscultation [] Abdomen: Bowel sounds normal, soft, no tenderness, no masses, no pulsatile masses. [] Skin: Warm, dry, no erythema, no rash. [] Back: No tenderness, no CVA tenderness. [] Extremities: No tenderness, no cyanosis, no clubbing, ROM intact, no edema. [] Neurologic: Alert and oriented X 3, normal motor function, normal sensory function, no focal deficits noted. [] Psychologic: Affect normal, judgement normal, mood normal. [] Current Patient Data Vital Signs Vital Signs Date Time Temp Pulse Resp B/P (MAP) Pulse Ox O2 Delivery O2 Flow Rate FiO2 09/06/18 12:23 98.0 111 18 122/79 (93) 100 Room Air 98.0 Lab Values Laboratory Tests Test 09/06/18 12:40 09/06/18 12:45 09/06/18 12:52 Urine Collection Type Unknown Urine Color Red Urine Clarity Cloudy Urine pH 6.0 Urine Specific [place] 1.020 Urine Protein 30 mg/dL (NEG-TRACE) Urine Glucose (UA) Negative mg/dL (NEG) Urine Ketones (Stick) Trace mg/dL (NEG) Urine Blood Large (NEG) Urine Nitrite Negative (NEG) Urine Bilirubin Negative (NEG) Urine Urobilinogen Dipstick 0.2 mg/dL (0.2 mg/dL) Urine Leukocyte Esterase Small (NEG) Urine RBC Tntc /HPF (0-2) Urine WBC 1-4 /HPF (0-4) Urine Squamous Epithelial Cells Few /LPF Urine Bacteria Few /HPF (0-FEW) Urine Mucus Mod /LPF POC Urine HCG, Qualitative Hcg negative (Negative) White Blood Count 7.3 x10^3/uL (4.0-11.0) Red Blood Count 4.26 x10^6/uL (3.50-5.40) Hemoglobin 14.3 g/dL (12.0-15.5) Hematocrit 41.1 % (36.0-47.0) Mean Corpuscular Volume 97 fL (79-100) Mean Corpuscular Hemoglobin 34 pg (25-35) Mean Corpuscular Hemoglobin Concent 35 g/dL (31-37) Red Cell Distribution Width 13.8 % (11.5-14.5) Platelet Count 275 x10^3/uL (140-400) Neutrophils (%) (Auto) 56 % (31-73) Lymphocytes (%) (Auto) 35 % (24-48) Monocytes (%) (Auto) 7 % (0-9) Eosinophils (%) (Auto) 1 % (0-3) Basophils (%) (Auto) 1 % (0-3) Neutrophils # (Auto) 4.0 x10^3uL (1.8-7.7) Lymphocytes # (Auto) 2.5 x10^3/uL (1.0-4.8) Monocytes # (Auto) 0.5 x10^3/uL (0.0-1.1) Eosinophils # (Auto) 0.1 x10^3/uL (0.0-0.7) Basophils # (Auto) 0.1 x10^3/uL (0.0-0.2) Sodium Level 139 mmol/L (136-145) Potassium Level 4.1 mmol/L (3.5-5.1) Chloride Level 103 mmol/L (98-107) Carbon Dioxide Level 29 mmol/L (21-32) Anion Gap 7 (6-14) Blood Urea Nitrogen 17 mg/dL (7-20) Creatinine 0.9 mg/dL (0.6-1.0) Estimated GFR (Cockcroft-Gault) 75.1 BUN/Creatinine Ratio 19 (6-20) Glucose Level 97 mg/dL (70-99) Calcium Level 9.8 mg/dL (8.5-10.1) Total Bilirubin 0.7 mg/dL (0.2-1.0) Aspartate Amino Transferase (AST) 17 U/L (15-37) Alanine Aminotransferase (ALT) 21 U/L (14-59) Alkaline Phosphatase 72 U/L (46-116) Total Protein 7.7 g/dL (6.4-8.2) Albumin 3.9 g/dL (3.4-5.0) Albumin/Globulin Ratio 1.0 (1.0-1.7) Lipase 126 U/L (73-393) Laboratory Tests 09/06/18 12:52 Laboratory Tests 09/06/18 12:52 Microbiology 09/06/18 Urine Culture - Final, Complete 09/06/18 Urine Culture Result 1 (DAMION) - Final, Complete EKG EKG [] Radiology/Procedures Radiology/Procedures PROCEDURE: CT ABDOMEN PELVIS WO CONTRAST Examination: CT of the abdomen pelvis without contrast HISTORY: History of worsening left flank pain, hematuria COMPARISON: 08/31/2018 TECHNIQUE: Axial CT images of the abdomen pelvis were performed without contrast. Coronal and sagittal reformats are performed Exposure: One or more of the following individualized dose reduction techniques were utilized for this examination: 1. Automated exposure control 2. Adjustment of the mA and/or kV according to patient size 3. Use of iterative reconstruction technique FINDINGS: The bibasilar lungs are clear. No evidence of free air identified in the abdomen. The evaluation of the solid organs is limited due to lack of IV contrast. The evaluation of bowel is limited due to lack of oral contrast. The visualized noncontrasted liver, spleen, adrenals grossly appears unremarkable. Cystic thymic clips identified. The stomach is mildly distended. The visualized pancreas grossly appears unremarkable. The small bowel is nondilated. The appendix is normal. Feces and gas noted in the colon. There is a 3 mm calculus identified in the left kidney. Mild left-sided hydronephrosis and hydroureter. There are 2 small 3 mm calculi identified in the distal left ureter at the ureterovesical junction best visualized on series 2 image 179. There is an additional small 2 mm calculus identified in the distal left ureter, best visualized on series 2 image 162. Urinary bladder is mildly distended. No evidence of lytic bony destructive lesion. IMPRESSION: 1. Mild left-sided hydronephrosis and hydroureter identified with two small 3 mm calculi identified in the distal left ureter at the ureterovesical junction best visualized on series 2 image 179. There is an additional small 2 mm calculus identified in the distal left ureter, best visualized on series 2 image 162. 2. Left intrarenal collecting system calculus measuring 3 mm Electronically signed by: Brian Soto MD (09/06/2018 1:17 PM) [place] [id number] Course & Med Decision Making Course & Med Decision Making Pertinent Labs and Imaging studies reviewed. (See chart for details) [] Dragon Disclaimer Dragon Disclaimer This electronic medical record was generated, in whole or in part, using a voice recognition dictation system. Departure Departure Impression: Primary Impression: Hydronephrosis with renal and ureteral calculous obstruction Disposition: 01 HOME, SELF-CARE Condition: STABLE Referrals: FELIX LOMAX APRN (PCP) ZAMZAM ZAPATA MD Patient Instructions: Diet for Kidney Stones, Kidney Stones, [id number] Scripts Tamsulosin Hcl (FLOMAX) 0.4 Mg Cap.er.24h 1 CAP PO DAILY, #10 CAP 0 Refills Prov: MP NAPIER DO 09/06/18 Oxycodone/Apap 5-325 (PERCOCET 5-325 MG TABLET ) 1 Each Tablet 1 TAB PO PRN Q6HRS PRN for PAIN, #14 TAB 0 Refills Prov: MP NAPIER DO 09/06/18 MP NAPIER DO Sep 06, 2018 13:56
[2018-09-06] MEDS ORDERED: TAMS0.4C97 PO (14:19)
[2018-09-06] MEDS ORDERED: OXYC1TAB15 PO (14:19)
[2018-09-06] MEDS: TAMSULOSIN 0.4 MG CAP.ER.24H. PO ONE (14:30)
== END 2018-09-06 14:33 | disposition home or self-care (01) ==
LOC: ER 12:08
DX: N13.2 Hydronephrosis with renal and ureteral calculous obstruction (principal); E28.2 Polycystic ovarian syndrome; Z90.49 Acquired absence of other specified parts of digestive tract
CPT/HCPCS: 36415; 74176; 80053; 81001; 81025; 83690; 85025; 87086; 96361; 96374; 96375; 99284; J1885; J2765; J7030

== ENCOUNTER → 2018-10-04 | Outpatient (CLI) | payer OTHER ==
[2018-09-06 12:23] VITALS: BP 122/79
[~2018-10-04] MED LIST changes: +ERGO500027 PO; +OMEP40CA5 PO; +TAMS0.4C97 PO
--- NOTE | 2018-10-04 16:02 | RAD ---
Examination: Single frontal view of the abdomen HISTORY: History of left-sided abdominal pain, ureteral calculus COMPARISON: CT from 11/07/2017. FINDINGS: The bowel gas pattern appears unremarkable. Feces and gas noted in the colon.No evidence of radiopaque intrarenal collecting system calculus or calcification or calculus along the ureters visualized. IMPRESSION: 1. Unremarkable gas pattern. 2. No evidence of radiopaque intrarenal collecting system calculus or calcification or calculus along the ureters visualized. Electronically signed by: Brian Soto MD (10/04/2018 3:58 PM) [id number]
== END | disposition home or self-care (01) ==
LOC: RAD 14:12
PROVIDERS: ATTEND Urology
DX: N20.1 Calculus of ureter (principal)
CPT/HCPCS: 74018

== ENCOUNTER → 2018-10-06 | Outpatient (CLI) | payer OTHER ==
[2018-09-06 12:23] VITALS: BP 122/79
[~2018-10-06] MED LIST changes: +ALBU2.5V8 INH; +AZIT250T6 PO; +IOHEXOL 180 MG/ML 10 ML VIAL. ONE; +METH4TAB2 PO; +methylPREDNISolone ACETATE 40 MG/ML VIAL. ONE; +methylPREDNISolone ACETATE 80 MG/ML VIAL. ONE
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
== END | disposition home or self-care (01) ==
LOC: PNCL 09:55
PROVIDERS: ATTEND Anesthesiology
DX: M50.123 Cervical disc disorder at C6-C7 level with radiculopathy (principal); F32.9 Major depressive disorder, single episode, unspecified; Z87.891 Personal history of nicotine dependence; Z90.49 Acquired absence of other specified parts of digestive tract; Z98.890 Other specified postprocedural states; Z79.899 Other long term (current) drug therapy; Z88.6 Allergy status to analgesic agent; Z88.8 Allergy status to other drugs, medicaments and biological substances; Z82.49 Family history of ischemic heart disease and other diseases of the circulatory system; Z83.3 Family history of diabetes mellitus
CPT/HCPCS: 62321; J1030; J1040; Q9965; 62323

== ENCOUNTER 2018-12-05 13:01 | Emergency (ER) | payer OTHER ==
[~2018-12-05] VITALS: Ht 154.9 cm; Wt 72.6 kg
[~2018-12-05 13:01] MED LIST changes: -ALBU2.5V8 INH; -AZIT250T6 PO; -IOHEXOL 180 MG/ML 10 ML VIAL. ONE; -METH4TAB2 PO; -methylPREDNISolone ACETATE 40 MG/ML VIAL. ONE; -methylPREDNISolone ACETATE 80 MG/ML VIAL. ONE
[2018-12-05 14:40] VITALS: BP 127/86
[2018-12-05] MEDS ORDERED: predniSONE 20 MG TABLET PO ONE (14:45)
[2018-12-05] MEDS ORDERED: ACETAMINOPHEN 500 MG TABLET PO ONE (14:45)
[2018-12-05] MEDS ORDERED: IPRATRPIUM/ALBUTEROL 0.5/2.5MG 3 ML NEBU. NEB ONE (14:45)
--- NOTE | 2018-12-05 14:57 | PHYS DOC ---
Past Medical History Past Medical History: Anxiety, Depression, Kidney Stone, Other Additional Past Medical Histor: PCOS, sleep Past Surgical History: Cholecystectomy, Tonsillectomy, Other Additional Past Surgical Histo: Sinus Alcohol Use: Occasionally Drug Use: None Adult General Chief Complaint Chief Complaint: COUGH HPI HPI Patient is a 28 year old Female who presents with 2 weeks of cough, shortness of air, bodies, nasal congestion. Patient states that the first which she got a little better but now she is getting worse again. Patient states she's also been running a fever. Patient has a history of asthma. Patient does not have an inhaler at home. Review of Systems Review of Systems Constitutional: fever or chills [] Eyes: Denies change in visual acuity, redness, or eye pain [] HENT: nasal congestion or denies sore throat [] Respiratory: cough or shortness of breath [] Cardiovascular: No additional information not addressed in HPI [] GI: Denies abdominal pain, +nausea, vomiting, bloody stools or diarrhea [] : Denies dysuria or hematuria [] Musculoskeletal: Denies back pain or joint pain [] Integument: Denies rash or skin lesions [] Neurologic: Denies headache, focal weakness or sensory changes [] All other systems were reviewed and found to be within normal limits, except as documented in this note. Current Medications Current Medications Current Medications Medications (Trade) Dose Ordered Sig/Ron Start Time Stop Time Status Last Admin Dose Admin Acetaminophen (Tylenol) 1,000 mg 1X ONCE 12/05/18 14:45 12/05/18 14:46 DC 12/05/18 15:15 1,000 MG Albuterol/ Ipratropium (Duoneb) 3 ml 1X ONCE 12/05/18 14:45 12/05/18 14:46 DC 12/05/18 15:05 3 ML Prednisone (Prednisone) 20 mg 1X ONCE 12/05/18 14:45 12/05/18 14:46 DC 12/05/18 15:15 20 MG Allergies Allergies Allergies Coded Allergies Type Severity Reaction Last Updated Verified ketorolac Allergy Unknown 10/06/18 Yes nickel Allergy Unknown Rash 10/06/18 Yes Physical Exam Physical Exam Constitutional: Well developed, well nourished, no acute distress, non-toxic appearance. [] HENT: Normocephalic, atraumatic, bilateral external ears normal, oropharynx moist, no oral exudates, nose normal. Bilateral tympanics boggy. Throat red without swelling or exudates. [] Eyes: PERRLA, EOMI, conjunctiva normal, no discharge. [] Neck: Normal range of motion, no tenderness, supple, no stridor. [] Cardiovascular:Heart rate regular rhythm, no murmur [] Lungs & Thorax: Bilateral breath sounds clear to auscultation [] Abdomen: Bowel sounds normal, soft, no tenderness, no masses, no pulsatile masses. [] Skin: Warm, dry, no erythema, no rash. [] Back: No tenderness, no CVA tenderness. [] Extremities: No tenderness, no cyanosis, no clubbing, ROM intact, no edema. [] Neurologic: Alert and oriented X 3, normal motor function, normal sensory function, no focal deficits noted. [] Psychologic: Affect normal, judgement normal, mood normal. [] Current Patient Data Vital Signs Vital Signs Date Time Temp Pulse Resp B/P (MAP) Pulse Ox O2 Delivery O2 Flow Rate FiO2 12/05/18 15:05 98 Room Air EKG EKG [] Radiology/Procedures Radiology/Procedures [] Impressions: [facility] [address] [place], [place] [id number] IMAGING REPORT Signed PATIENT: JERILYN PATEL ACCOUNT: [id number] : 1990 LOCATION: ER AGE: 28 SEX: F EXAM STATUS: REG ER ORD. PHYSICIAN: KALYAN TRONCOSO APRN REASON: cough, soa PROCEDURE: CHEST PA & LATERAL Two-view chest dated 12/05/2018: No comparison available. Clinical Indication: Cough for 2 weeks. Findings: PA and lateral exam of the chest was performed. Heart size and mediastinal contours are within normal limits given technique. The lungs are clear without evidence of focal consolidation. Vascular interstitium is within normal limits. Impression:: No acute radiographic abnormality. Electronically signed by: Alonso Dickinson MD (12/05/2018 3:02 PM) [id number] DICTATED and SIGNED BY: ALONSO DICKINSON MD DATE: 12/05/18 1502 Course & Med Decision Making Course & Med Decision Making Patient is a 28 year old Female who presents with 2 weeks of cough, shortness of air, bodies, nasal congestion. Patient states that the first which she got a little better but now she is getting worse again. Patient states she's also been running a fever. Patient has a history of asthma. Patient does not have an inhaler at home. Patient speaks in full clear sentences. Lungs are clear to auscultation in all lobes. Alert and oriented. Abdomen is soft and nontender. Patient states she has some nausea but no abdominal pain or vomiting or diarrhea. Patient denies any chest pain or dizziness. Skin pink warm and dry. Mucous membranes are moist. Patient states she has not taken any medication for her body aches and she is given a gram of Tylenol in the ED. I have also ordered her a breathing treatment and a dose of prednisone. Ambulatory and walks with a steady gait. Bilateral tympanics boggy. There are red but no exudates. Patient has improved after breathing treatment. Patient follow-up with her primary care provider and take medications as prescribed. I did prescribe her a pro-air inhaler for at home. Dragon Disclaimer Dragon Disclaimer This electronic medical record was generated, in whole or in part, using a voice recognition dictation system. Departure Departure Impression: Primary Impression: Upper respiratory infection Disposition: HOME, SELF-CARE Condition: STABLE Referrals: FELIX LOMAX APRN (PCP) Patient Instructions: Upper Respiratory Infection, Adult Additional Instructions: Follow-up her primary care provider is not getting better. Drink plenty of fluids. Continue taking Tylenol or ibuprofen for pain or fever. Take medications as prescribed. Scripts Albuterol Sulfate (Proair Hfa) 8.5 Gm Hfa.aer.ad 1 PUFF INH PRN Q6HRS PRN for SHORTNESS OF BREATH, #1 INHALER Prov: KALYAN TRONCOSO APRN 12/05/18 Azithromycin (AZITHROMYCIN TABLET) 250 Mg Tablet 1 PKG PO UD, #6 TAB Prov: KALYAN TRONCOSO APRN 12/05/18 Methylprednisolone (MEDROL) 4 Mg Tab.ds.pk 1 PKG PO UD, #1 PKG START TOMORROW 12/06/18 Prov: KALYAN TRONCOSO APRN 12/05/18 Problem Qualifiers Primary Impression: Upper respiratory infection URI type: unspecified URI Qualified Codes: J06.9 - Acute upper respiratory infection, unspecified KALYAN TRONCOSO APRN Dec 05, 2018 14:56
--- NOTE | 2018-12-05 15:05 | RAD ---
Two-view chest dated 12/05/2018: No comparison available. Clinical Indication: Cough for 2 weeks. Findings: PA and lateral exam of the chest was performed. Heart size and mediastinal contours are within normal limits given technique. The lungs are clear without evidence of focal consolidation. Vascular interstitium is within normal limits. Impression:: No acute radiographic abnormality. Electronically signed by: Alonso Dickinson MD (12/05/2018 3:02 PM) [id number]
[2018-12-05] MEDS ORDERED: METH4TAB2 PO (15:23)
[2018-12-05] MEDS ORDERED: AZIT250T6 PO (15:24)
[2018-12-05] MEDS ORDERED: ALBU2.5V8 INH (15:26)
== END 2018-12-05 16:01 | disposition home or self-care (01) ==
LOC: ER 13:01
DX: J06.9 Acute upper respiratory infection, unspecified (principal); J45.909 Unspecified asthma, uncomplicated; Z88.6 Allergy status to analgesic agent; Z88.8 Allergy status to other drugs, medicaments and biological substances
CPT/HCPCS: 71046; 94640; 99283; J7512; J7620